=== PATIENT | female | born 1955 ===

== ENCOUNTER 2019-12-03 12:01 | Outpatient (CLI) | payer MEDICAID ==
[~2019-12-03 12:01] MED LIST: LEVOTHYROXINE75 MCG ORAL; LISINOPRIL40 MG ORAL; OXYBUTYNIN CHLOR5 M1 ORAL; ZOLOFT100 MG ORAL
--- NOTE | 2019-12-04 14:55 | General Progress Note ---
Subjective ROS Limited/Unobtainable: Yes Allergies: Coded Allergies: No Known Allergies (Unverified , 09/17/19) Objective General Appearance: alert EENT: normal ENT inspection Neck: supple Cardiovascular: normal rate Respiratory/Chest: decreased breath sounds Abdomen: normal bowel sounds, non tender, soft Extremities: non-tender Assessment/Plan Assessment/Plan: rectal CA s/o chemo and radiation s/p colonoscopy poor prep ? small remnant off tumor in the rectum. [facility] will need Flex sig and repeat biopsy if oncology recommends Ash Lemos MD Dec 04, 2019 14:55
== END 2019-12-03 14:01 | disposition home or self-care (01) ==
LOC: PAN 12:01
DX: C20 Malignant neoplasm of rectum (principal)
CPT/HCPCS: 99212